=== PATIENT | female | born 1935 | race Caucasian/White ===

== ENCOUNTER 2024-06-15 11:29 | Emergency (ER) | payer OTHER, MEDICARE ==
[~2024-06-15] VITALS: Ht 144.8 cm; Wt 68.0 kg
== END 2024-06-15 13:50 | disposition home or self-care (01) ==
LOC: ER 11:29
DX: S01.81XA Laceration without foreign body of other part of head, initial encounter (principal); E03.9 Hypothyroidism, unspecified; E78.5 Hyperlipidemia, unspecified; Z59.89 Other problems related to housing and economic circumstances; W01.0XXA Fall on same level from slipping, tripping and stumbling without subsequent striking against object, initial encounter
CPT/HCPCS: 12013; 70450; 99283-25